=== PATIENT | female | born 1945 | race Caucasian/White ===

== ENCOUNTER 2021-02-23 13:29 | Inpatient (IN) | payer OTHER ==
[2021-02-23 09:00] VITALS: BP 94/46
[~2021-02-23 13:29] MED LIST: AMLO-187 PO; ATOR40TA59 PO; BIMA2.5D EACHEYE; CARV12.511 PO; HYDR200T71 PO; HYDR25TA PO; LEVO-101 PO; LOSA25TA54 PO; NAPR1TAB21 PO; NITR0.4T24 SL; OMEP20CA16 PO; PEMB100V IV; PRED50TA PO; PRED5TAB PO; SIMV20TA18 PO; TRAM50TA PO; TRAV5DRO OP; TRAZ-123 PO
[2021-02-23] MEDS ORDERED: IV NORMAL SALINE 1000ML BAG 1,000 ML IV SCH (14:00)
[2021-02-23] MEDS ORDERED: NALOXONE 0.4 MG/ML VIAL. IV PRN (14:00)
[2021-02-23] MEDS ORDERED: SCOPOLAMINE 1.5MG PATCH. TD SCH (14:00)
[2021-02-23] MEDS ORDERED: MORPHINE SULFATE 30 ML IV PRN (14:00)
--- NOTE | 2021-02-23 19:40 | NUR ---
Patient placed on inpatient hospice. VETERINARY TOXICOLOGIST pump started. Tele off. Oxygen sensor off. 1733 this RN assessed patient with TRAVIS Chung. No breath sounds present, no heart sounds present. No pupil response present. Time of 1733. This RN phoned Dr. Diana, Nursing concrete paving supervisor, [facility] and [facility]. Family unsure of home arrangements at this time, will call back when they get home to notify nurse. All pt belongings sent with patient sonGautam.
== END 2021-02-23 17:34 | DRG 179 ==
LOC: 6 SOUTH 13:29
PROVIDERS: ADMIT Family Medicine; ATTEND Family Medicine
DX: J15.6 Pneumonia due to other Gram-negative bacteria (principal); I10 Essential (primary) hypertension; E78.5 Hyperlipidemia, unspecified; E03.9 Hypothyroidism, unspecified; Z66 Do not resuscitate
CPT/HCPCS: J2060; J2270; J7030; G0378